=== PATIENT | male | born 1990 | race Caucasian/White ===

== ENCOUNTER 2017-03-12 12:44 | Emergency (ER) | payer SELFPAY ==
[~2017-03-12] VITALS: Ht 167.6 cm; Wt 64.5 kg
[2017-03-12 13:24] VITALS: Ht 167.6 cm; Wt 64.5 kg
== END 2017-03-12 21:46 | disposition left against medical advice (07) ==
LOC: FTE 12:44
DX: Z53.21 Procedure and treatment not carried out due to patient leaving prior to being seen by health care provider (principal)

== ENCOUNTER 2017-05-12 12:00 | Emergency (ER) | payer SELFPAY ==
[~2017-05-12] VITALS: Ht 175.3 cm; Wt 79.0 kg
[2017-05-12 12:09] VITALS: Ht 175.3 cm; Wt 79.0 kg
== END 2017-05-12 15:22 | disposition left against medical advice (07) ==
LOC: E/R 12:00
DX: Z53.21 Procedure and treatment not carried out due to patient leaving prior to being seen by health care provider (principal)